=== PATIENT | female | born 1995 | race African-American/Black ===

== ENCOUNTER 2023-01-02 00:35 | Emergency (ER) | payer MEDICAID, OTHER ==
[~2023-01-02] VITALS: Ht 175.3 cm; Wt 47.7 kg
[~2023-01-02 00:35] MED LIST: GLYB1.257 PO
[2023-01-02 00:42] VITALS: BP 125/89
== END 2023-01-02 01:34 | disposition home or self-care (01) ==
LOC: ER 00:35
DX: R51.9 Headache, unspecified (principal); R41.82 Altered mental status, unspecified; F15.10 Other stimulant abuse, uncomplicated; F14.10 Cocaine abuse, uncomplicated
CPT/HCPCS: 70450

== ENCOUNTER → 2023-07-12 00:18 | Emergency (ER) | payer MEDICAID | END | disposition left against medical advice (07) | LOC: ER 00:18 | DX: R06.02 Shortness of breath (principal); Z53.21 Procedure and treatment not carried out due to patient leaving prior to being seen by health care provider ==